=== PATIENT | female | born 1955 | race Caucasian/White ===

== ENCOUNTER 2017-12-14 06:59 | Inpatient (IN) | payer OTHER ==
[2017-12-14] VITALS (12 sets, daily range): BP systolic 135–175; BP diastolic 79–107
[~2017-12-14] VITALS: Ht 152.4 cm; Wt 100.1 kg
[~2017-12-14 06:59] MED LIST: ALEVE220 MG PO; ANUSOL-HC25 MG RECTAL; ANUSOL1 EACH RC; CABERGOLINE 0.0.5 M1 PO; COLACE100 MG PO; DOSTINEX; ESTRACE1 TUBE VAG; GLUCOPHAGE XR500 MG PO; HYDROCODONE-APA1 TA1 PO; METFORMIN HCL500 MG; NAPROSYN500 MG; NORCO 5-325 TA1 EACH PO; ONDANSETRON HCL4 M2 PO; PERCOCET 7.5-31 EACH PO; PHENERGAN 25 MG25 M1 PO; PROTONIX40 M1 PO; PROZAC 20 MG20 M1 PO; PROZAC20 MG PO; PROZAC40 MG PO; SIMVASTATIN40 MG PO; TOPAMAX 25 MG T25 M1 PO; TRAMADOL 50 MG50 MG PO; XANAX 0.5 MG0.5 MG PO; [UNRECOGNIZED DRUG - OTHER] PO
--- NOTE | 2017-12-14 07:08 | NUR ---
BOTTLE OF 60 PILLS HAD 25 1/2 LEFT IN IT, PT STATES SHE JUST KEEPS ADDING NEW PILLS TO THIS BOTTLE, PT STATES SHE IS GIVEN THESE FOR WEIGHT LOSS. D-AMPHETAMINE SALT COMBO 20 MG TABS TAKE 1 TABLET BY MOUTH TWICE DAILY
--- NOTE | 2017-12-14 07:16 | NUR ---
SPOKE WITH POISON CONTROL. THEY WILL BE FAXING OVER INFORMATION ABOUT ADDERALL OVERDOSE.
--- NOTE | 2017-12-14 07:23 | NUR ---
PT'S BOTTLE OF ADDERALL TAKEN TO PHARMACY
[2017-12-14 07:44] LABS: ABSOLUTE BASOPHILS 0.1 thou/uL (0.0-0.2); ABSOLUTE EOSINOPHILS 0.3 thou/uL (0.0-0.7); ABSOLUTE MONOCYTES 0.5 thou/uL (0.0-1.2); ABSOLUTE NEUTROPHILS 6.5 thou/uL (1.6-8.1); BASOPHILS 1.2 %; EOSINOPHILS 2.5 %; HEMOGLOBIN 12.4 gm/dL (12.0-15.0); LYMPHOCYTES 35.3 %; MCH 33.3 pg (26.0-34.0); MCHC 33.4 g/dL (28.0-37.0); MCV 99.5 fL (80.0-100.0); MPV 6.7 fl. (7.2-11.1); NUCLEATED RBCS 0 /100WBC; PLATELET COUNT* 297 thou/uL (150-400); RBC 3.72 mil/uL (4.20-5.00); WBC 11.4 thou/uL (4.0-11.0)
[2017-12-14 07:54] LABS: ANION GAP 11 mmol/L (7-16); BUN 22 mg/dL (7-18); CALCIUM 8.7 mg/dL (8.5-10.1); CHLORIDE 106 mmol/L (98-107); CO2 24 mmol/L (21-32); CREATININE 1.1 mg/dL (0.6-1.3); GLUCOSE 141 mg/dL (70-99); POTASSIUM 3.3 mmol/L (3.5-5.1); SODIUM 141 mmol/L (136-145)
[2017-12-14 07:55] LABS: APTT 23.2 Seconds (25.0-31.3); INR 1.1; PROTIME 10.5 Seconds (9.20-11.50)
[2017-12-14 08:02] LABS: ALCOHOL < 10 mg/dL (<10)
[2017-12-14 08:03] LABS: ACETAMINOPHEN < 2 ug/mL (10-30); SALICYLATE < 2.8 mg/dL (2.8-20.0)
[2017-12-14 08:05] LABS: ALBUMIN 3.9 g/dL (3.4-5.0); ALKALINE PHOSPHATASE 81 U/L (46-116); NT-PRO BRAIN NAT PEPTIDE 67 pg/mL (<300); SGOT 23 U/L (15-37); SGPT 34 U/L (30-65); TOTAL BILIRUBIN 0.5 mg/dL (<0.1-1.0); TOTAL PROTEIN 7.5 g/dL (6.4-8.2); TROPONIN-I LEVEL <0.06 ng/mL (<0.06)
[2017-12-14 09:24] LABS: URINE BILIRUBIN NEGATIVE (Negative); URINE BLOOD 1+ (Negative); URINE CLARITY SL CLOUDY; URINE COLOR YELLOW; URINE GLUCOSE-RANDOM TRACE (Negative); URINE KETONES 1+ (Negative); URINE LEUKOCYTES-REFLEX NEGATIVE (Negative); URINE NITRITE-REFLEX POSITIVE (Negative); URINE PROTEIN TRACE (Negative)
[2017-12-14 09:31] LABS: SQUAMOUS 4-10 Moderate /LPF (0-3); URINE RBC 3-10 Few /HPF (0-2); URINE WBC-REFLEX 0-5 Rare /HPF (0-5)
[2017-12-14 09:32] LABS: AMP/METHAMP POSITIVE (Negative); BARBITURATES Negative (Negative); BENZODIAZEPINES Negative (Negative); CASTS None Seen /LPF (None Seen); COCAINE Negative (Negative); CRYSTALS None Seen /LPF (None Seen); METHADONE Negative (Negative); MUCUS 4-6 Moderate strn/LPF (None Seen); OPIATES POSITIVE (Negative); PCP Negative (Negative); THC Negative (Negative)
[2017-12-14] MEDS ORDERED: ADDERALL 20 MG20 M1 PO (09:42)
[2017-12-14] MEDS ORDERED: HYDROCODON-ACE1 EAC7 PO (09:43)
[2017-12-14] MEDS ORDERED: FLONASE 0.05%50 MCG NASAL (09:43)
[2017-12-14] MEDS ORDERED: SYNTHROID75 MCG PO (09:44)
[2017-12-14] MEDS ORDERED: CLOBETASOL EMOL15 GM TOP (09:49)
--- NOTE | 2017-12-14 10:17 | EKG ---
[place] [address] ELECTROCARDIOGRAM REPORT Name: MATT RUBIO Room: [place] [address] ADM IN .R.#: [id number] Admission: 12/14/17 Attend Phys: Yenny Martin MD Discharge: Date of : 59 Report #: [id number] THIS REPORT FOR: //name// [facility] ED Test Date: 2017-12-14 Test Time: 07:06:07 Pat Name: MATT RUBIO Department: Room: [facility] Gender: F Manager Primary: TAYO : 1955 Requested By: De Clark Order Number: [id number] MD: Jeison Orozco Measurements Intervals [place] Rate: 118 P: 47 GA: 169 QRS: -12 QRSD: 96 T: 123 QT: 322 QTc: 452 Interpretive Statements Sinus tachycardia Repol abnrm suggests ischemia, lateral leads Baseline wander in lead(s) V1,V4 Compared to ECG 10/03/2014 04:44:03 Possible ischemia now present Sinus rhythm no longer present Electronically Signed On 12-14-2017 10:17:30 CDT by Jeison Orozco [email or web address] <ELECTRONICALLY SIGNED> By: Jeison Orozco MD, [facility] 12/14/17 1017 5 Jeison Orozco MD, [facility] /EPI
--- NOTE | 2017-12-14 10:17 | NUR ---
[place] [employer] CONTACTED AT PT'S REQUEST TO MAKE SURE HER HOME IS SECURE. POLICE DEPT TO CHECK ON PT'S HOUSE.
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
--- NOTE | 2017-12-14 17:30 | NUR ---
PATIENT MILDLY PROGRESSING TOWARDS GOALS. VITALS AND ASSESSMENT REMAIN STABLE. PATIENT STILL VERY DISORGANIZED AND RESTLESS. 1:1 SITTER REMAINS PRESENT WITH SUICIDAL PRECAUTIONS IN PLACE. ROOM REMAINS SECURED. POISON CONTROL CALLED AND WAS UPDATED ON PATIENT'S CURRENT STATUS, STATED THEY WILL RECALL IN THE AM.
[2017-12-15] VITALS (8 sets, daily range): BP systolic 123–160; BP diastolic 75–98
[2017-12-15 02:53] LABS: HEMOGLOBIN 12.3 gm/dL (12.0-15.0); MCH 33.4 pg (26.0-34.0); MCHC 34.1 g/dL (28.0-37.0); MCV 97.9 fL (80.0-100.0); MPV 6.5 fl. (7.2-11.1); RBC 3.68 mil/uL (4.20-5.00); RDW-CV 12.7 % (10.5-14.5)
[2017-12-15 03:12] LABS: ALBUMIN 3.8 g/dL (3.4-5.0); CALCIUM 8.5 mg/dL (8.5-10.1); CREATININE 1.1 mg/dL (0.6-1.3); MAGNESIUM 1.5 mg/dL (1.8-2.4); POTASSIUM 3.7 mmol/L (3.5-5.1); TOTAL BILIRUBIN 0.5 mg/dL (<0.1-1.0); TOTAL PROTEIN 7.6 g/dL (6.4-8.2)
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
--- NOTE | 2017-12-15 09:15 | NUR ---
PT GAVE VERBAL CONSENT TO SPEAK WITH SISTER ANNAMARIE RATLIFF.
--- NOTE | 2017-12-15 10:49 | NUR ---
Nutrition: Consult received for "pt takes adderall for wt loss." Pt admitted for overdose/SI. Has 1:1 sitter. Per ICU rounds, pt needs psych eval. Pt having grandiose ideas and flight of idea. Not appropriate for diet education at this time.
--- NOTE | 2017-12-15 11:00 | NUR ---
Pt admitted 12/14 after Adderall overdose. Per nursing, pt is alert and able to answer all orientation questions this morning, however she remains anxious, difficult to keep focused on the conversation, jumps from one topic to another when talking. Pt sleeping when I tried to talk to her. Case Mgt will continue to follow.
--- NOTE | 2017-12-15 11:00 | NUR ---
SPOKE WITH [facility] CABELLO WITH PERMISSION FROM PT. PT WANTED NURSE TO CALL AND GIVE UPDATE.
--- NOTE | 2017-12-15 11:08 | NUR ---
SPOKE WITH PINEDA AT POISON CONTROL.
--- NOTE | 2017-12-15 14:30 | NUR ---
RECIEVED REPORT FROM JEANINE IN ICU AND ASSUMED CARE OF PT @ 3109. PT IS A/O X4 WITH FLIGHT OF THOUGHTS,DELUSIONS OF GRANDUER,AND PARANOIA.VSS.TRACING SR ON MONITOR.LUNG SOUNDS ARE CLEAR WITH O2 SAT 97% ON ROOM AIR.PT STATES LAST BM WAS 12/12/17. IV RIGHT HAND PATENT WITH NS RUNNING @ 100ML/HR. IV LEFT HAND PATENT AND SALINE LOCKED. PT IS VERY ANXIOUS WITH NO C/O PAIN AT TIME OF ASSESSMENT.PT IS UP AD MARIA C TO BATHROOM.SITTER IN ROOM WITH ROOM SET UP FOR SI PRECAUTIONS.CALL LIGHT IN REACH. WILL CONTINUE TO MONITOR.
--- NOTE | 2017-12-15 18:36 | NUR ---
VSS.CARDIAC MONITORING IN PLACE WITH NO CHANGES.PT REMAINS ON ROOM AIR.PT PROGRESSING TOWARDS GOALS.SITTER IN PLACE.PT DENIES PAIN THROUGHTOUT SHIFT.IV RIGHT HAND D/C DUE TO PT PULLING IT OUT.IV LEFT HAND D/C DUE TO CLOTTING OFF.PT INFORMED OF PLAN AND COMMUNICATES UNDERSTANDING.PT REMAINS ANXIOUS,IMPULSIVE,WITH FLIGHT OF THOUGHTS. PT AMBULATES IN ROOM AND TO BATHROOM.HOURLY ROUNDING COMPLETED FOR PT SAFETY.CALL LIGHT IN REACH.WILL CONTINUE TO MONITOR FOR DURATION OF SHIFT.
[2017-12-16 03:38] VITALS: BP 148/83
--- NOTE | 2017-12-16 04:27 | NUR ---
A&O X4 CALM COOPERITVE. PT APPEARS MANIC. PT HAS NOT SLEPT ON SHIFT. SR ON THE MONITOR. PT ADLIB. SI PRECAUTIONS. VITALS WNL. VILE OF ATIVAN WAISTED. SEE MAN. SEE CHARTING. VITALS WNL. HOURLY ROUNDING FOR SAFETY.
[2017-12-16 05:41] LABS: HEMATOCRIT 33.9 % (37.0-47.0); HEMOGLOBIN 11.7 gm/dL (12.0-15.0); MCHC 34.6 g/dL (28.0-37.0); MCV 98.2 fL (80.0-100.0); MPV 7.1 fl. (7.2-11.1); RBC 3.45 mil/uL (4.20-5.00); RDW-CV 12.8 % (10.5-14.5)
[2017-12-16 05:55] LABS: ALBUMIN 3.7 g/dL (3.4-5.0); CALCIUM 8.6 mg/dL (8.5-10.1); CREATININE 1.1 mg/dL (0.6-1.3); MAGNESIUM 2.3 mg/dL (1.8-2.4); POTASSIUM 4.8 mmol/L (3.5-5.1); TOTAL BILIRUBIN 0.5 mg/dL (<0.1-1.0); TOTAL PROTEIN 7.2 g/dL (6.4-8.2)
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
[2017-12-16 08:09] VITALS: BP 129/79
[2017-12-16] MEDS ORDERED: CIPRO500 MG PO (08:43)
[2017-12-16] MEDS ORDERED: TOPROL XL25 MG PO (08:45)
--- NOTE | 2017-12-16 14:08 | NUR ---
CM SPOKE TO THE RN IN-CHARGE OF THE PATIENT AND HE INFORMS THAT THE PATIENT IS NOW MEDICALLY STABLE FOR DISCHARGE TO INPATIENT PSYCH. CM CONTACTED [facility] TO INFORM OF THE REFERRAL AND FAXED PATIENTS FACESHEET, H&P, ER PROGRESS NOTES, PSYCH CONSULT NOTES, LABS, AND MED LIST. BERGTON INTAKE INFORMS THAT THE WILL REVIEW PATIENTS CLINICAL INFO AND RETURN CALL. CM WILL REMAIN AVAILABLE TO ASSIST AND FOLLOW NEEDED.
[2017-12-16] MEDS ORDERED: ZYPREXA 10 MG T10 MG PO (17:38)
[2017-12-16 17:46] VITALS: BP 129/79
--- NOTE | 2017-12-16 19:07 | NUR ---
SHUKRI RESTING NI BED IN ROOM. SHUKRI WAS PLACED IN 4 POIT SOFT RESTRAINTS TODAY FOR BEHAVIOR THREATENING THE SAFETY OF HERSELF AND HER CAREGIVERS. SHUKRI WAS EDUCATED ON THE PROPER BEHAVIOR FOR RELEASE FROM RESTRAINTS. RESTRAINTS INITIATED AT 07:44 TODAY AND LEANDRA WAS ABLE TO ABIDE BY SAFE BEHAVIOR REQUIREMENTS FOPR RELEASE FROM RESTRAINTS, RESTRAINTS DC'D AT 11:59 TODAY. SHUKRI HAS REMAINED COOPERATIVE WITH STAFF TODAY AND REMAINS WITH 1:1 SITTER FOR SI AND ATTEMPTED SUICIDE. VITAL SIGNS STABLE AND PATIENT IN NO APPARET SIGNSD OF DISTRESS AT THIS TIME. AWAITING ACCEPTANCE INTO PSYCHIATRIC UNIT FOR TRANSFER OF CARE. HOURKY ROUNDING COMPLETED FOR LEANDRA SAFETY NAD ALL CARE PROVIDED FOR PATIENT.
[2017-12-16 20:00] VITALS: BP 88/51
--- NOTE | 2017-12-16 23:41 | NUR ---
Doctor Mario notified of patient's blood pressure. See orders, bolus ordered.
[2017-12-17] VITALS (7 sets, daily range): BP systolic 80–119; BP diastolic 50–71
--- NOTE | 2017-12-17 06:59 | NUR ---
PATIENT RESTED IN BED. PATIENT BLOOD PRESSURE WAS LOW, DOCTOR NOTIFIED. DOCTOR ORDER TWO BOLUS DURING THE SHIFT, PATIENT BLOOD PRESSURE RETURN TO NORMAL. FALL PRECAUTIONS IN PLACE, SITTER AT BED SIDE.
--- NOTE | 2017-12-17 08:24 | NUR ---
pt resting in bed , appears o x 3-4 forgetful, thought year was may 2017, could sttae she was in hospital for Suicidal ideatuion. DEnies chest pain, SON. ot pain, denies anuy thougts of SI/HI, Has sitter in [facility] 09/05 constant observation, IVF infusing BPs 95/60, hr 66, Ambulated to bathroom with standby assist, denies feeling dizzy or lightheaded
--- NOTE | 2017-12-17 13:00 | NUR ---
PT.HAD HYPOTENSION DURING NIGHT. DISCUSSED WITH . SHE SAID PT.WAS STABLE FOR DISCHARGE. EZ LAMBERT SAID 2 JUSTEN NEVER CALLED BACK LAST EVENING. HE SPOKE WITH TWO CAMPUZANO TODAY,WHO SAID THEY WERE AT [facility]. CONFIRMED THIS WITH INTAKE, THERE, [phone]. DANN SPOKE WITH TRAN AT [phone] AND FAXED HER INFORMATION. SHE CALLED BACK AND SAID THEY ARE TOO SHORT STAFFED TO ACCEPT TODAY. SHE SAID TO CALL BACK TOMORROW. [facility], [facility] SAID THEY ARE AT [phone]. SPOKE WITH [facility] IN [facility]-[phone]. FAXED HER INFORMATION. IF THEY CAN ACCEPT PT.THEY WILL LET OUR NSG.TELEVISION STATION MANAGER KNOW. PHONE NUMBER GIVEN. EZ LAMBERT NOTIFIED OF ABOVE. DANN DID SPEAK WITH PT.AND SHE SAID SHE WAS AGREEABLE TO GO TO INPT.PSYCH. THERE ARE NO AFFIDAVITS ON CHART.
[2017-12-17] MEDS ORDERED: ZYPREXA 5 MG TAB5 M1 PO (14:24)
[2017-12-17] MEDS ORDERED: CIPRO500 MG PO (14:24)
--- NOTE | 2017-12-17 17:50 | NUR ---
pt resting in bed, slept off and on most of day. Cont to have sitter 1/1for SI, has denied any thoughts of SI/HI today. Cont with IVF, wehen up to bathroom has denied any thoughts of being dizzy or lightheaded. plans /arrgs being mad to transfer to in patient psych pending approval
[2017-12-18] VITALS: BP 88/51
--- NOTE | 2017-12-18 03:47 | NUR ---
ASSUMED PT CARE AT 1930, PT IS A&OX4, PT IS VERY TEARFUL THIS SHIFT, DENIES ANY SI. PT HAS A SITTER IN PLACE AT THIS TIME. PT IS TRACING NSR ON THE MONITOR, ON RA SATTING MID TO HIGH 90'S THIS SHIFT. PT IS UP STB TO THE BR THIS SHIFT. BED IN LOW POSITION, CALL LIGHT IN REACH, BED ALARM ON. YELLOW ARM BAND AND SOCKS IN PLACE. PT C/O SOME ANXIETY THIS SHIFT WELL A COUGH. PRN MEEDICATIONS GIVEN PER NOV. HOURLY ROUNDING COMPLETED FOR PT SAFETY.
[2017-12-18 03:59] VITALS: BP 112/62
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
[2017-12-18 12:01] VITALS: BP 136/88
--- NOTE | 2017-12-18 15:10 | NUR ---
I spoke with [facility], [facility] and [facility]. They are all at capacity today but may have beds tomorrow.
[2017-12-18 16:00] VITALS: BP 131/69
--- NOTE | 2017-12-18 18:30 | NUR ---
PATINET RESTING IN BED. UP TO CHAIR AND UP IN ROOM AD MARIA C WITH 1:1 SITTER FOR SI. PATIENT DENIES CURRENT SUICIDAL IDEATION AND HAS NO ACTIVE PLANS. VITAL SIGNS STABLE AND PATIENT IN NO APPARENT DISTRESS AT THIS TIME. HOURLY ROUNDING COMPLETD FOR PATIENT SAFETY AND LEANDRA IS PROGRESSING TOWARDS GOALS. PSYCHIATRIC FACILITIES CONTACTED TO DAY AGAIN AND ALL STATED THAT THEY WERE AT [facility]ACITY UNTIL FURTHER NOTICE.
--- NOTE | 2017-12-19 01:08 | NUR ---
ASSUMED CARE OF PT AT 1900. PT IS ALERT AND ORIENTED. VSS. PERRLA. NO COMPLAINTS OF PAIN. STEADY GAIT. NO COMPLAINTS OF SUICIDAL IDEATION. PT IS ON 1:1 STATUS. PT IS IN SINUS RYTHM ON THE TELEMETRY. PT IS RESTING COMFORTABLY IN BED. RESPIRATIONS ARE EVEN AND NONLABORED. WILL CONTINUE TO MONITOR PT.
[2017-12-19 08:00] VITALS: BP 99/58
--- NOTE | 2017-12-19 10:12 | NUR ---
Faxed referrals to: [facility], [facility], [facility] and [facility]. [facility] continues to not have any beds available. [facility] is at acuity and asked that CM call back later today if bed is still needed. CM contacted [facility] bed pager, awaiting call back re: bed availability. Following.
[2017-12-19 12:07] VITALS: BP 102/69
--- NOTE | 2017-12-19 13:41 | NUR ---
[facility] is unable to accept Pt. [facility] in [facility] is full. [facility] in [place] is full. [facility] in [place] is full Faxed referral to [facility] in [place], [place] Continue to await call back from [facility], [facility], [facility] and [facility].
[2017-12-19 15:15] VITALS: BP 103/58
--- NOTE | 2017-12-19 18:07 | NUR ---
PATIENT RESTING I NBED IN ROOM. PATIENT DENIES CURRENT SUICIDAL IDEATION BUT STATES THAT SHE WILL DO WHAT EVER SHE HAS TO IN ORDER TO GET HER MONEY BACK FROM HER BUT WILL NO ELABORATE ON PLAN. VITAL SIGNS STABLE AND PATIET IN NO APPARENT SIGNS OF DISTRESS. AWAITING ACCEPTANCE TO PSYCHIATRIC UNIT. HOURLY ROUNDING COMPLETED FOR PATIENT SAFETY.
[2017-12-20] VITALS: BP 117/76
--- NOTE | 2017-12-20 02:53 | NUR ---
ASSUMED PT CARE AT 19:15 PT IS ALERT AWAKE ORIENTED X 4. VITAL SIGNS TAKEN . OXYGEN SATURATION I S 95 ON RA. IV LINE IS PATENT. SINUS RYTHM ON THE MONITOR. RESULT WITHIN NORMAL LIMIT. ASSESSMENT PERFORMED AT BEDSIDE. PT COMPLAIN OF HEADACHE LEVEL OF 5. ALEVE WWAS ADMINISTERED DIRECTED. PT IS CURRENTLY FRR FROM PAIN. RESTING IN BED WITH 1 : 1 SITTER IN ROOM. PT MOOD IS APPROPRIATE, FOLLOW COMMAND AND IS COUNSELLORS[ERATIVE. MEDICATIONS ADMINISTERED ORDERED. WILL CONTINUE TO MONITOR.
--- NOTE | 2017-12-20 03:16 | NUR ---
PT BLOOD PRESSURE HAS DROPPED BETWEEN SBP: 85 AND 91 AND DBP 50 AND 40. MAP IS 55. PT APPEARS TIRED. NO COMPLAIN OF DIZINESS. DID NOT RECEIVE ANY NARCO ON THIS SHIFT. SHE APPEARS A LITTLE SWEATY. TEMPERATURE 97.5 AXILLARY. bLOOD SUGAR WAS TAKEN RESULT IS 113. WILL CONTINUE TO MONITOR BLOOD PRESSURE.
[2017-12-20 04:00] VITALS: BP 105/63
--- NOTE | 2017-12-20 05:19 | NUR ---
PT BP AT THIS TIME IS 105/63 HR 89. SEEMS CALM, ALERT ORIENTED X4. HOWEVER SITTER REPORT THAT PT HAS BEEN TALKING ABOUT SUICIDE AND CRYING A LOT DURING THE PAST 90 MINUTES.
[2017-12-20 11:55] VITALS: BP 115/78
--- NOTE | 2017-12-20 12:24 | NUR ---
Following through dc. Contacted inpt psych facilities today for placement. [facility] in [facility]-full [facility] in [place]-faxed referral [facility] in [place]-full [facility] in [place]-no adult beds, under construction [facility]-unable to accept Pt [facility] [place]full [place]faxed referral [facility]faxed referral [facility] [place]-faxed referral [facility]-full, call back later [facility] in [place]-faxed referral
[2017-12-20 15:38] VITALS: BP 91/56
--- NOTE | 2017-12-20 16:19 | NUR ---
PATIENT RESTING IN BED. UP AD MARIA C IN ROOM. PATIENT HAS BEEN APPROPRIATE IN HER ACTIONS TODAY BUT STILL HAS BOUTS OF ANXIETY AND THOUGHTS OF HARMING HERSELF. VITAL SIGNS ARE STABLE AND PATIENT IN NOAPARENT DISTRESS AT THIS TIME. PYSCHIATRIC RE EVALUATION FOR TOMORROW. PATIENT AWAITING ADMISSION TO PSYCHIATRIC FACILITY. HOURLY ROUNDING COMPLETED FOR PATIENT SAFETY AND PATIENT IS PROGRESSING TOWARDS GOALS.
--- NOTE | 2017-12-20 17:52 | NUR ---
ASSUMED PT. CARE AND RECEIVED REPORT AT 1620. PT A/OX4, PREVIOUS ASSESSMENT REVIEWED WITH NO NOTED CHANGES. PT. SITTING AT TABLE IN ROOM, ACTIONS AND CONVERSATIONS ARE APPROPRIATE AND POLITE AT THIS TIME. REMAINS 1:1 FOR SAFETY. DENIES CURRENT NEEDS, WILL CONTINUE WITH PLAN OF CARE.
[2017-12-21] VITALS: BP 100/66
--- NOTE | 2017-12-21 02:18 | NUR ---
RECIEVED REPORT AND ASSUMED CARE OF PATIENT AT 1930. PAPER SORTER IN PLACE TRACING SR. ASSESSMENT AND VITALS COMPLETED CHARTED, VSS. PATIENT A&OX4, CALM AND COOPERATIVE AT THIS TIME. PATIENT HAD C/O PAIN IN LEGS IN WHICH SHE RECIEVED NAPROXEN FOR PRIOR TO SHIFT CHANGE. PATIENT DENIES PAIN AT THIS TIME. PATIENT ON ROOM AIR WITH SATS >92%. 1:1 SITTER FOR SI PRECAUTIONS. PATIENT GOAL IS TO REMAIN CALM AND COOPERATIVE WITH STAFF AND REST COMFORTABLY.
[2017-12-21 04:00] VITALS: BP 91/69
--- NOTE | 2017-12-21 05:38 | NUR ---
PATIENT PROGRESSING TOWARDS GOALS: PATIENT HAS REMAINED CALM AND COOPERATIVE WITH STAFF THIS SHIFT. 1:[address] FOR SI PRECAUTIONS. CALL LIGHT WITHIN REACH
--- NOTE | 2017-12-21 07:15 | NUR ---
CHANGE OF SHIFT BEDSIDE REPORT GIVEN ASSUMED PATIENT CARE PATIENT SEEN AT BEDSIDE, ASLEEP 1:1 SITTER IN ROOM
[2017-12-21 08:00] VITALS: BP 101/71
--- NOTE | 2017-12-21 10:15 | NUR ---
New psych consult placed, CM will initiatie looking for inpt psych placement, if ordered, once complete. Following.
[2017-12-21 11:40] VITALS: BP 92/50
--- NOTE | 2017-12-21 13:21 | NUR ---
Nutrition: LOS note. Pt is going to psych at discharge. Labs, Hx, RX noted. Wt is stable. Albumin 3.7. No acute nutrition concerns at this time. Low risk.
--- NOTE | 2017-12-21 14:45 | NUR ---
Spoke with intake at [facility] in [place], informed that they should have a bed available in the morning for Pt. Updated nurse, nurse will update Dr to determine if a new psych consult needs to be obtained. Following.
[2017-12-21 16:00] VITALS: BP 99/59
--- NOTE | 2017-12-21 18:47 | NUR ---
PATIENT REMAINS 1:1 SITTER PATIENT DENIES SI, HI A AND O X 4 NSR LUNGS CTA/DIM/RA GOOD APPETITE LAST BM T-1 GOOD UO, UNSEEN UP AD MARIA C C/O PAIN TREATED FOR C/O PAIN WITH NAPROXEN WAITNG ON BED FOR PSYCH FACILITY IV 20 GA SL L HAND
[2017-12-21 20:00] VITALS: BP 89/49
--- NOTE | 2017-12-21 21:48 | NUR ---
RECIEVED REPORT AND ASSUMED CARE OF PATIENT AT 1930. CATERING ADMINISTRATIVE ASSISTANT IN PLACE TRACING SR. ASSESSMENT AND VITALS COMPLETED CHARTED, BP LOW. PATIENT ASYMPTOMATIC AND NOTED THAT PATIENT HAS BEEN HYPOTENSIVE RECENTLY. PATIENT DENIES PAIN AND DISCOMFORT. GOAL IS FOR PATIENT TO REST COMFORTABLY AND REMAIN CALM AND COOPERATIVE. 1:1 SITTER AT BEDSIDE
[2017-12-22 00:37] VITALS: BP 87/57
[2017-12-22 04:00] VITALS: BP 104/65
--- NOTE | 2017-12-22 04:09 | NUR ---
PATIENT PROGRESSING TOWARDS GOALS: PATIENT HAS REMAINED CALM AND COOPERATIVE THIS SHIFT AND HAS RESTED WELL. 1:1 SITTER REMAINS AT BEDSIDE FOR SI PRECAUTIONS. PATIENT'S OCCASIONAL ANXIETY MANAGED WITH PO ATIVAN. HOURLY ROUNDING OBSERVED. CALL LIGHT WITHIN REACH
[2017-12-22 08:00] VITALS: BP 105/73
--- NOTE | 2017-12-22 10:00 | NUR ---
Contacted [facility] and [facility], left a message for Renata at [facility], spoke with Kimberlee at [facility] she will know of ability to accept after their morning meeting that should end around 11. Awaiting call back from Renata. Updated Dr Eagle. He will initiate psych eval once we hear back from both facilities, Pt continues to need inpt psych. Following.
[2017-12-22 11:30] VITALS: BP 114/78
[2017-12-22 16:11] VITALS: BP 104/72
--- NOTE | 2017-12-22 16:41 | NUR ---
New psych consult completed, recommendation continues to be for inpt psych. Updated Pt. Faxed referrals to [facility], [facility] [place], [facility], [facility], [facility], and [facility]. Awaiting decision to accept.
--- NOTE | 2017-12-22 18:02 | NUR ---
RECEIVED REPORT. ASSUMED CARE OF PT AROUND 729. PT A&O X4, PLEASANT. VSS. O2 SAT 97% ON RA. CARDIAC MONIITOR IN PLACE TRACING SR WITH NO CHANGES THIS SHIFT. AM ASSESSMENT AND VITALS COMPLETED CHARTED. PT LOST IV ACCESS THIS AM, ORDER RECEIVED TO LEAVE IV OUT. PT EATING AND DRINKING WITHOUT ISSUE. 1:1 SITTER MAINTAINED. SECOND TELE PSYCH EVAL COMPLETED THIS AFTERNOON AND RESULTS RECEIVED AND FAXED TO POSSIBLE INPATIENT FACILITIES. AWAITING RESPONSES. PT AGREEABLE TO GOING TO INPATIENT PSYCH FACILITY. PT HAS BEEN PLEASANT AND CALM THIS SHIFT. PT HAS MADE NO REMARKS ABOUT SUICIDE IDEATION THIS SHIFT. PT UP AD MARIA C IN ROOM. GOING TO BATHROOM NEEDED, VOIDING WITHOUT ISSUE. BM X2 THIS AM. PT CURRENTLY WATCHING TV IN BED. CALL LIGHT IS WITHIN REACH. LOW FALL RISK PRECAUTIONS IN PLACE. SITTER IN ROOM. HOURLY ROUNDING PERFORMED. WCTM FOR DURATION OF SHIFT.
--- NOTE | 2017-12-22 18:03 | NUR ---
NOEL CALLED AND ASKED FOR LAB RESULTS TO BE FAXED. LABS FAZED TO
--- NOTE | 2017-12-22 22:56 | NUR ---
PATIENT WAS DISCHARGE BY PHYSICIAN WHEN A BED WAS AVAILABLE AT RECEIVING FACILITY. REPORT GIVEN TO ACCEPTING FACILITY. PATIENT INFORMED OF TRANSFER AND AGREEABLE. PARAMEDICS ESCORTED PATIENT OFF THE UNIT IN STABLE CONDITION. SEE ASSESSMENT PRIOR TO D/C. PAPER WORK SENT WITH PATIENT.
== END 2017-12-22 22:55 | DRG 917 ==
LOC: M.ERS 06:59 → M.ICU 08:55 → M.TBA-ER 08:55 → M.ERS 09:25 → M.ICU 10:45 → M.2W 12-15 14:14
PROVIDERS: Family Medicine; ADMIT Internal Medicine
DX: T43.622A Poisoning by amphetamines, intentional self-harm, initial encounter (principal); G92 Toxic encephalopathy; N39.0 Urinary tract infection, site not specified; Z68.41 Body mass index [BMI] 40.0-44.9, adult; Z96.642 Presence of left artificial hip joint; F41.9 Anxiety disorder, unspecified; R03.0 Elevated blood-pressure reading, without diagnosis of hypertension; R00.0 Tachycardia, unspecified; E03.9 Hypothyroidism, unspecified; F31.9 Bipolar disorder, unspecified; F29 Unspecified psychosis not due to a substance or known physiological condition; E66.9 Obesity, unspecified; Z79.51 Long term (current) use of inhaled steroids; Z79.899 Other long term (current) drug therapy; Y92.89 Other specified places as the place of occurrence of the external cause; Z88.2 Allergy status to sulfonamides; Z91.041 Radiographic dye allergy status